=== PATIENT | male | born 1955 | race Hispanic/Latino ===

== ENCOUNTER 2021-04-12 00:46 | Emergency (ER) | payer OTHER ==
[2021-04-12 00:57] VITALS: BP 133/78
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
--- NOTE | 2021-04-12 01:54 | Emergency Department Report ---
Blank Doc - Documentation Documentation: This patient info was entered in error. Apparently patient's name is Chito Siomara lutz not Micah Garcia.
--- NOTE | 2021-04-12 11:25 | Electrocardiograph Report ---
[facility] Test Date: 2021-04-12 Test Time: 00:59:11 Pat Name: REGINALD COLIN Department: Room: Gender: M [employer] Comb[employer]: ADA : 1955 Requested By: TASHA VELASCO Order Number: [id number] Reading MD: Oliver Lofton Measurements Intervals [place] Rate: 59 P: 65 MO: 168 QRS: 2 QRSD: 84 T: QT: 374 QTc: 372 Interpretive Statements Sinus bradycardia Probable left atrial enlargement No previous ECG available for comparison Electronically Signed On 04-12-2021 11:24:50 EDT by Oliver Lofton
== END 2021-04-12 05:15 ==
LOC: ED 00:46
DX: R07.9 Chest pain, unspecified (principal); Z53.21 Procedure and treatment not carried out due to patient leaving prior to being seen by health care provider
CPT/HCPCS: 93005